=== PATIENT | male | born 1965 | race Caucasian/White ===

== ENCOUNTER 2023-05-21 20:39 | Inpatient (IN) | payer MEDICARE, OTHER ==
[~2023-05-21] VITALS: Ht 172.7 cm; Wt 67.9 kg
[2023-05-21 20:25] VITALS: BP 111/72; TEMP 97.2; O2SAT 93
[2023-05-21] MEDS ORDERED: ACET-2030 PO (22:30)
[2023-05-21] MEDS ORDERED: POLY17PO4 PO (22:30)
[2023-05-21] MEDS ORDERED: MECL-159 PO (22:30)
[2023-05-21] MEDS ORDERED: SENN-261 PO (22:30)
[2023-05-21] MEDS ORDERED: MAGN400O6 PO (22:30)
[2023-05-21] MEDS ORDERED: LEVE250T2 PO (22:30)
[2023-05-21] MEDS ORDERED: DOCU-141 PO (22:30)
[2023-05-21] MEDS ORDERED: ACET325T53 PO (22:30)
[2023-05-21] MEDS ORDERED: [UNRECOGNIZED DRUG - CODE] PO (22:30)
[2023-05-21] MEDS ORDERED: SILO8CAP6 PO (22:30)
[2023-05-21] MEDS ORDERED: LIDO1ADH44 TP (22:30)
[2023-05-21] MEDS ORDERED: HYDR500C2 PO (22:30)
[2023-05-21] MEDS ORDERED: MELA3TAB41 PO (22:30)
[2023-05-21] MEDS ORDERED: HYDR-3980 PO (22:32)
[2023-05-21] MEDS ORDERED: GABA300C PO (22:32)
[2023-05-21] MEDS ORDERED: FINA5TAB3 PO (22:32)
[2023-05-21] MEDS ORDERED: REMEDY ESSENTIAL ZINC PASTE 113 GM TOP PRN (23:15)
[2023-05-21] MEDS: MELATONIN 3 MG TABLET PO SCH (23:34)
[2023-05-22 07:08] VITALS: BP 107/71; TEMP 97.9; O2SAT 94
[2023-05-22] MEDS: MIRALAX 17 GM POWD.PACK PO SCH (09:00)
[2023-05-22 11:10] VITALS: BP 112/76; TEMP 97.8; O2SAT 96
[2023-05-22] MEDS ORDERED: HYDR-3972 PO (12:13)
[2023-05-22] MEDS ORDERED: MAGNESIUM HYDROXIDE 30 ML LIQUID UDC PO PRN (13:00)
[2023-05-22] MEDS: DOCUSATE SODIUM 100 MG CAPSULE PO SCH (13:24)
[2023-05-22] MEDS: FINASTERIDE 5 MG TABLET PO SCH (13:24)
[2023-05-22] MEDS: GABAPENTIN 300 MG CAPSULE PO SCH (13:57)
[2023-05-22] MEDS: ENOXAPARIN SODIUM 40 MG/0.4 ML DISP.SYRIN SQ SCH (15:21)
[2023-05-22 16:00] VITALS: BP 102/77; TEMP 97.8; O2SAT 94
[2023-05-22] MEDS: [UNRECOGNIZED DRUG - OTHER] PO SCH (17:19)
[2023-05-22] MEDS: HYDROXYUREA 500 MG CAPSULE PO SCH (17:33)
[2023-05-22 20:00] VITALS: BP 117/74; TEMP 98.5; O2SAT 93
[2023-05-22] MEDS: levETIRAcetam 250 MG TABLET PO SCH (21:34)
[2023-05-22] MEDS: MELATONIN 3 MG TABLET PO SCH (21:34)
[2023-05-22] MEDS: SENNOSIDES 1 TABLET PO SCH (21:35)
[2023-05-23 05:20] VITALS: BP 100/71; TEMP 98.2; O2SAT 98
[2023-05-23 06:50] LABS: BASOPHILS % (AUTO) 0.4 % (0.0-2.0); EOSINOPHILS % (AUTO) 0.3 % (0.0-7.0); HEMATOCRIT 38.4 % (36.7-47.1); HEMOGLOBIN 12.9 g/dL (12.5-16.3); LYMPHOCYTES # (AUTO) 1.1 K/uL (0.8-4.8); LYMPHOCYTES % (AUTO) 18.9 % (20.5-51.5); MEAN CORPUSCULAR HEMOGLOBIN 36.8 uug (23.8-33.4); MEAN CORPUSCULAR HGB CONC 34 g/dL (32.5-36.3); MEAN CORPUSCULAR VOLUME 109.3 fL (73.0-96.2); MONOCYTES # (AUTO) 0.5 K/uL (0.1-1.30); MONOCYTES % (AUTO) 8.3 % (0.0-11.0); NEUTROPHILS % (AUTO) 72.1 % (38.5-71.5); PLATELET COUNT (AUTO) 409 K/uL (152-348); RED BLOOD CELL COUNT(AUTO) 3.51 MIL/uL (4.06-5.63); RED CELL DISTRIBUTION WIDTH 20.1 % (12.1-16.2); WHITE BLOOD COUNT (AUTO) 5.6 K/uL (3.6-10.2)
[2023-05-23 07:01] LABS: DIFFERENTIAL COMMENT 1
[2023-05-23 07:13] LABS: THYROID STIMULATING HORMONE 3.359 mIU/mL (0.358-3.740)
[2023-05-23 07:30] LABS: ALANINE AMINOTRANSFERASE 34 U/L (16-63); ALBUMIN 3.2 g/dL (3.4-5.0); ALKALINE PHOSPHATASE 103 U/L (50-136); ASPARTATE AMINOTRANSFERASE 25 U/L (15-37); BILIRUBIN,TOTAL 0.5 mg/dL (0.2-1.0); CALCIUM 8.4 mg/dL (8.5-10.1); CARBON DIOXIDE 28 mmol/L (21-32); CHLORIDE 104 mmol/L (98-107); CHOLESTEROL 171 mg/dL (<200); CREATININE 0.6 mg/dL (0.6-1.3); GLUCOSE 106 mg/dL (74-106); HDL CHOLESTEROL 42 mg/dL (40-60); MAGNESIUM 2.5 mg/dL (1.8-2.4); PHOSPHOROUS 3.7 mg/dL (2.5-4.9); POTASSIUM 4.2 mmol/L (3.5-5.1); SODIUM SERUM 140 mmol/L (136-145); TOTAL PROTEIN, SERUM 6.5 g/dL (6.4-8.2); TRIGLYCERIDES 127 MG/DL (30-150); UREA NITROGEN, BLOOD 22 mg/dL (7-18)
[2023-05-23 07:40] LABS: IRON, SERUM 62 ug/dL (50-175)
[2023-05-23 08:38] VITALS: BP 104/64; TEMP 98.3; O2SAT 94
[2023-05-23] MEDS ORDERED: SILODOSIN 8 MG PO SCH (09:00)
[2023-05-23] MEDS ORDERED: IVOSIDENIB PO SCH (09:00)
[2023-05-23] MEDS: HYDROCODONE/APAP 5-325MG TABLET PO PRN (10:04)
[2023-05-23 12:09] VITALS: BP 104/70; TEMP 98.1; O2SAT 94
[2023-05-23 16:23] VITALS: BP 99/66; TEMP 98.2; O2SAT 94
[2023-05-23 20:00] VITALS: BP 101/64; TEMP 98.4; O2SAT 94
[2023-05-24 06:00] VITALS: BP 100/62; TEMP 97.8; O2SAT 93
[2023-05-24 08:13] VITALS: BP 100/62; TEMP 97.7; O2SAT 97
[2023-05-24] MEDS: ENSURE ENLIVE (VAN) 240 ML LIQUID PO SCH (08:51)
[2023-05-24 12:00] VITALS: BP 97/68; TEMP 98.2; O2SAT 93
[2023-05-24 16:00] VITALS: BP 100/70; TEMP 98.3; O2SAT 94
[2023-05-24 20:00] VITALS: BP 103/72; TEMP 98.1; O2SAT 93
[2023-05-25 06:00] VITALS: BP 104/69; TEMP 97.7; O2SAT 93
[2023-05-25 16:56] VITALS: BP 156/79; TEMP 97.3; O2SAT 93
[2023-05-25 20:00] VITALS: BP 120/77; TEMP 98; O2SAT 94
[2023-05-26 04:40] VITALS: BP 103/70; TEMP 98.1; O2SAT 97
[2023-05-26 16:50] VITALS: BP 107/74; TEMP 97.9; O2SAT 95
[2023-05-26 22:02] VITALS: BP 103/74; TEMP 97.7; O2SAT 94
[2023-05-27 06:00] VITALS: BP 106/66; TEMP 98.6; O2SAT 94
[2023-05-27 16:00] VITALS: BP 92/65; TEMP 98.1; O2SAT 95
[2023-05-27 21:36] VITALS: BP 94/65; TEMP 97.7; O2SAT 95
[2023-05-28 06:00] VITALS: BP 122/74; TEMP 98; O2SAT 96
[2023-05-28 12:00] VITALS: BP 97/64; TEMP 97.6; O2SAT 94
[2023-05-28 16:00] VITALS: BP 102/64; TEMP 98; O2SAT 94
[2023-05-28 20:10] VITALS: BP 99/63; TEMP 98.1; O2SAT 94
[2023-05-29] MEDS: ACETAMINOPHEN 325 MG TABLET PO PRN (01:42)
[2023-05-29 05:17] VITALS: BP 107/68; TEMP 98.5; O2SAT 95
[2023-05-29 15:57] VITALS: BP 96/58; TEMP 98.3; O2SAT 95
[2023-05-29 20:24] VITALS: BP 117/61; TEMP 98.1; O2SAT 96
[2023-05-30 06:23] VITALS: BP 102/63; TEMP 97.9; O2SAT 93
[2023-05-30] MEDS: MECLIZINE HCL 25 MG TABLET PO PRN (09:27)
[2023-05-30 10:37] VITALS: BP 110/68; TEMP 97.7; O2SAT 96
[2023-05-30 11:26] VITALS: BP 109/56; TEMP 98.9; O2SAT 94
[2023-05-30 15:40] VITALS: BP 104/66; TEMP 97.9; O2SAT 94
[2023-05-30 20:00] VITALS: TEMP 98.2
[2023-05-31 05:13] VITALS: TEMP 97.6
[2023-05-31 09:42] VITALS: BP 102/63; TEMP 98.2; O2SAT 94
[2023-05-31 16:00] VITALS: BP 91/62; TEMP 97.8; O2SAT 96
[2023-05-31 20:00] VITALS: BP 106/68; TEMP 97.9; O2SAT 94
[2023-06-01 06:00] VITALS: BP 104/67; TEMP 98; O2SAT 97
[2023-06-01 15:37] VITALS: BP 96/63; TEMP 98.2; O2SAT 96
[2023-06-01 20:00] VITALS: BP 103/66; TEMP 98.3; O2SAT 94
[2023-06-02 04:00] VITALS: BP 101/62; TEMP 97.9; O2SAT 95
[2023-06-02 09:30] VITALS: BP 110/65; TEMP 97.8; O2SAT 96
[2023-06-02 16:40] VITALS: BP 113/65; TEMP 97.9; O2SAT 97
[2023-06-02 21:05] VITALS: BP 98/67; TEMP 98; O2SAT 95
[2023-06-03 06:33] VITALS: BP 104/69; TEMP 97.8; O2SAT 95
== END 2023-06-03 09:50 | disposition home health service (06) | DRG 57 ==
PROVIDERS: ADMIT Physical Medicine & Rehabilitation Pain Medicine; ATTEND Physical Medicine & Rehabilitation Pain Medicine
DX: G81.91 Hemiplegia, unspecified affecting right dominant side (principal); D68.59 Other primary thrombophilia; E46 Unspecified protein-calorie malnutrition; R47.01 Aphasia; Z85.841 Personal history of malignant neoplasm of brain; D47.3 Essential (hemorrhagic) thrombocythemia; E78.5 Hyperlipidemia, unspecified; G20.C Parkinsonism, unspecified; I34.1 Nonrheumatic mitral (valve) prolapse; R73.03 Prediabetes; E03.9 Hypothyroidism, unspecified; Z98.890 Other specified postprocedural states; R53.1 Weakness; Z86.16 Personal history of COVID-19; E88.09 Other disorders of plasma-protein metabolism, not elsewhere classified; D75.89 Other specified diseases of blood and blood-forming organs; G89.29 Other chronic pain
CPT/HCPCS: 36415; 82652; 83550; 83735; 84100; 84443; 85025; 97535-GO-CO; A4663; J1650; J8597